=== PATIENT | female | born 1935 | race Caucasian/White ===

== ENCOUNTER 2017-06-29 15:53 | Emergency (ER) | payer OTHER ==
[~2017-06-29] VITALS: Ht 157.5 cm; Wt 89.0 kg
[~2017-06-29 15:53] MED LIST: CLR10 PO; DTR/2 PO; HYDR25TA4 PO; LEVO75TA PO; LISI10TA PO; LUTE6CAP PO; MULTTAB5 PO; OMEGCAP2 PO; OMEP20CA9 PO; PARO40TA3 PO; SIMV20TA5 PO; TRAM-453 PO; TRIA0.1C20 TOP
[2017-06-29 15:55] VITALS: TEMP 36.7; Ht 157.5 cm; Wt 89.0 kg
[2017-06-29] MEDS ORDERED: ACETAMINOPHEN 500 MG TAB PO STA (16:05)
--- NOTE | 2017-06-29 16:15 | EMERGENCY ROOM VISIT NOTE ---
History Report prepared by Rosalinda: Binta Shah Under the Supervision of: Dr. Martin Shine M.D. First contact with patient: 15:59 Chief Complaint: RIB PAIN Stated Complaint: L SIDE RIB PAIN DUE TO FALL History of Present Illness The patient is an 82 year old female who presents to the Emergency Room with complaints of an episode of left sided rib pain starting 2 hours ago. The patient states that she was on a stool trying to clean windows when she fell. She states that the stool was 3-4 feet off the ground. She states that when she fell she hit her side either on the railing of the stool or the counter nearby. She reports that she landed sitting on her butt. The patient states that the pain is worse with movement and a deep breath. She describes the pain as a stinging pain. She currently rates her pain as a 4/10 in severity. The patient denies taking any blood thinners, hitting her head, loss of consciousness, taking anything for the pain prior to arrival, anything else hurting, urinating since falling, noticing a bruise, noticing a bump, and a history of any issues with her spleen. Source of History: patient Onset: 2 hours ago Position: other (left sided rib) Symptom Intensity: 4/10 Quality: other (stinging) Timing: other (episode) Modifying Factors (Worsening): breathing (deep), movement Associated Symptoms: No LOC Note: The patient denies hitting her head, anything else hurting, noticing a bruise, noticing a bump, and urinating since the fall. Review of Systems See HPI for pertinent positives & negatives. A total of 10 systems reviewed and were otherwise negative. Past Medical & Surgical Medical Problems: (1) HTN (hypertension) (2) Hyperlipidemia Family History Hypertension Social History Smoking Status: Never Smoker Alcohol Use: none Drug Use: none Marital Status: Housing Status: lives with family Occupation Status: retired Current/Historical Medications Scheduled Hydrochlorothiazide (Hctz), 25 MG PO QAM Levothyroxine Sodium (Synthroid), 75 MCG PO QPM Lisinopril (Prinivil), 10 MG PO QAM Lutein (Lutein), 6 MG PO BID Multiple Vitamins W/ Minerals (Centrum), 1 TABLET PO QAM [place]-3 Fatty Acids (Fish Oil), 1 CAPSULE PO QAM Omeprazole (Prilosec), 20 MG PO QAM Paroxetine Hcl (Paxil), 40 MG PO QAM Simvastatin (Zocor), 20 MG PO QPM Tolterodine Tartrate (Detrol), 2 MG PO BID Scheduled PRN Loratadine (Claritin), 10 MG PO DAILY PRN for Allergies Tramadol Hcl (Ultram), 50 MG PO BID PRN for Pain Allergies Coded Allergies: Sulfamethoxazole w/Trimethoprim (Verified Allergy, Unknown, Body aches and rash on hands., 03/09/13) Physical Exam Vital Signs Date Time Temp Pulse Resp B/P (MAP) Pulse Ox O2 Delivery O2 Flow Rate FiO2 06/29/17 17:17 62 16 162/85 95 06/29/17 15:55 36.7 60 18 142/72 97 Room Air Physical Exam GENERAL: Patient is in no acute distress. HEENT: No acute trauma, normocephalic atraumatic, mucous membranes moist, no nasal congestion, no scleral icterus. NECK: No stridor, no adenopathy, no meningismus, trachea is midline. LUNGS: Clear to auscultation bilaterally, no wheeze, no rhonchi, breath sounds equal. HEART: Without murmurs gallops or rubs, regular rate and rhythm. CHEST: Tender to the lower left anterior ribs just below the breast. No contusion. ABDOMEN: Soft, mildly tender in the left upper quadrant, no contusion, bowel sounds positive, no hernias, no peritonitis. EXTREMITIES: No cyanosis or edema, full range of motion of all the joints without pain or difficulty, no signs for acute trauma. NEUROLOGIC: Oriented x 3, no acute motor or sensory deficits, no focal weakness. SKIN: No rash, no jaundice, no diaphoresis. Medical Decision & Procedures ER Provider Diagnostic Interpretation: Radiology results as stated below per my review and radiologist interpretation: L RIBS UNILATERAL WITH PA CHEST CLINICAL HISTORY: Fall. Left rib pain. COMPARISON STUDY: Chest and left rib series FINDINGS: No pleural effusions. No pneumothorax. The heart remains top normal in size. Stable prominence of the right hilum. A few linear densities the left lung base suggestive of scarring or atelectasis. The lungs are otherwise clear. There are suggestion of nondisplaced acute left anterior seventh and eighth rib fractures. IMPRESSION: Probable nondisplaced acute left anterior seventh and eighth rib fractures. No pneumothorax. Electronically signed by: Rhys Aguiar M.D. 06/29/2017 4:52 PM Dictated Date/Time: 06/29/2017 4:44 PM ABDOMEN LIMITED (US) CLINICAL HISTORY: fall, pain, check spleen and left kidney COMPARISON STUDY: None. FINDINGS: The spleen is normal in size measuring 9.6 cm in length. No perisplenic fluid collections. The spleen demonstrates a normal echotexture. There is a 4 cm left renal cyst. No perinephric fluid collections. Mild areas of cortical scarring seen within the left kidney. No left-sided hydronephrosis. IMPRESSION: 1. Normal spleen. 2. A 4 cm left renal cyst. Electronically signed by: Rhys Aguiar M.D. 06/29/2017 4:54 PM Dictated Date/Time: 06/29/2017 4:53 PM Medications Administered Medications (Trade) Dose Ordered Sig/Stephanie Route Start Time Stop Time Status Last Admin Dose Admin Acetaminophen (Tylenol Tab) 1,000 mg NOW STAT PO 06/29/17 16:05 06/29/17 16:07 DC 06/29/17 16:56 1,000 MG ED Course 1600: The patient was evaluated in room C5. A complete history and physical exam was performed. 1605: Ordered Tylenol Tab 1000 mg PO. 1700: The patient's urine dip was negative for blood. 1706: Reevaluated the patient. Discussed results and discharge instructions: She verbalized understanding and agreement. The patient is ready for discharge. Medical Decision Differential diagnoses include rib contusions or rib fracture, pulmonary contusions or pneumothorax, splenic or renal injury, hematuria. The patient presents after falling and striking her left ribs and left upper quadrant. An ultrasound of the left kidney and spleen was performed, no renal or splenic injury noted. Urine dip did not show any hematuria. Left rib series shows a potential crack to the seventh and eighth ribs, no pneumothorax or pulmonary contusion. On exam, there was no evidence for injury to the head, neck, extremities. Patient was given oral Tylenol. She is comfortable. She is not hypoxic. She will be discharged with [id number] pain medications, ice, rest and family doctor follow-up. If worsening, she can return. Medication Reconcilliation Current Medication List: was personally reviewed by in Blood Pressure Screening Patient's blood pressure: Elevated blood pressure Blood pressure disposition: Referred to PCP Impression Primary Impression: Left rib fracture Additional Impression: Fall Scribe Attestation The scribe's documentation has been prepared under my direction and personally reviewed by me in its entirety. I confirm that the note above accurately reflects all work, treatment, procedures, and medical decision making performed by me. Departure Information Dispostion Home / Self-Care Referrals Jimmy Salazar D.O. (PCP) Forms HOME CARE DOCUMENTATION FORM, IMPORTANT VISIT INFORMATION, WORK / SCHOOL INSTRUCTIONS Patient Instructions My [facility] Additional Instructions motrin or tylenol for pain ice for 30 minutes at a time for the next 2 days switch over to heat after 2 days move slowly rest return if feeling short of breath or note blood in the urine spleen and kidney today were ok Problem Qualifiers
--- NOTE | 2017-06-29 16:54 | DIAGNOSTIC IMAGING REPORT ---
L RIBS UNILATERAL WITH PA CHEST CLINICAL HISTORY: Fall. Left rib pain. COMPARISON STUDY: Chest and left rib series FINDINGS: No pleural effusions. No pneumothorax. The heart remains top normal in size. Stable prominence of the right hilum. A few linear densities the left lung base suggestive of scarring or atelectasis. The lungs are otherwise clear. There are suggestion of nondisplaced acute left anterior seventh and eighth rib fractures. IMPRESSION: Probable nondisplaced acute left anterior seventh and eighth rib fractures. No pneumothorax. Electronically signed by: Rhys gAuiar M.D. 06/29/2017 4:52 PM Dictated Date/Time: 06/29/2017 4:44 PM
--- NOTE | 2017-06-29 16:55 | DIAGNOSTIC IMAGING REPORT ---
ABDOMEN LIMITED (US) CLINICAL HISTORY: fall, pain, check spleen and left kidney COMPARISON STUDY: None. FINDINGS: The spleen is normal in size measuring 9.6 cm in length. No perisplenic fluid collections. The spleen demonstrates a normal echotexture. There is a 4 cm left renal cyst. No perinephric fluid collections. Mild areas of cortical scarring seen within the left kidney. No left-sided hydronephrosis. IMPRESSION: 1. Normal spleen. 2. A 4 cm left renal cyst. Electronically signed by: Rhys Aguiar M.D. 06/29/2017 4:54 PM Dictated Date/Time: 06/29/2017 4:53 PM
[2017-06-29 17:17] VITALS: BP 162/85; PULSE 62; O2SAT 95
== END 2017-06-29 17:18 | disposition home or self-care (01) ==
LOC: C.EDB 15:54 → C.EDC 17:18
DX: S22.42XA Multiple fractures of ribs, left side, initial encounter for closed fracture (principal); W08.XXXA Fall from other furniture, initial encounter; Y93.89 Activity, other specified; I10 Essential (primary) hypertension; E78.5 Hyperlipidemia, unspecified; Z82.49 Family history of ischemic heart disease and other diseases of the circulatory system; Z79.899 Other long term (current) drug therapy; Z88.2 Allergy status to sulfonamides